=== PATIENT | female | born 1995 | race African-American/Black ===

== ENCOUNTER → 2021-11-08 14:28 | Outpatient (CLI) | payer OTHER, SELFPAY ==
[2021-11-09 18:33] LABS: Candida species Negative (Negative); Gardnerella vaginalis Negative (Negative); Trichomoas vaginalis Negative (Negative)
== END ==
PROVIDERS: PCP Student in an Organized Health Care Education/Training Program; Referring Provider Obstetrics & Gynecology; Visit Provider Obstetrics & Gynecology
DX: Z34.81 Encounter for supervision of other normal pregnancy, first trimester (principal); Z3A.10 10 weeks gestation of pregnancy
CPT/HCPCS: 87480; 87510; 87660

== ENCOUNTER → 2021-12-18 14:17 | Outpatient (CLI) | payer OTHER, SELFPAY ==
[2021-12-18 14:52] LABS: Add Manual Diff / Slide Review NO; Basophils Absolute Auto 0 /uL (0-100); Basophils Percent Auto 0.3 % (0-2); Eosinophils Absolute Auto 100 /uL (0-450); Eosinophils Percent Auto 1.2 % (2-4); Hematocrit 37.4 % (36-46); Hemoglobin 12.5 g/dL (12.0-16.0); Lymphocytes Absolute Auto 2100 /uL (1100-4500); Lymphocytes Percent Auto 25.5 % (25-40); Mean Corpuscular HGB Conc 33.5 % (30-36); Mean Corpuscular Hemoglobin 26.4 PG (26-34); Monocytes Absolute Auto 500 /uL (0-900); Monocytes Percent Auto 6.5 % (3-14); Neutrophils Absolute Auto 5500 /uL (1500-7000); Neutrophils Percent Auto 66.5 % (50-75); Platelet Count 220 X10^3/uL (150-400); Red Blood Cell Count 4.73 X10^6/uL (4.0-5.2); Red Cell Distribution Width 16.1 % (11.6-14.8); White Blood Cell Count 8.2 X10^3/uL (4.5-11.0)
[2021-12-18 15:05] LABS: Appearance Urine UA SL CLOUDY; Bilirubin Urine UA NEGATIVE (NEGATIVE); Color Urine UA YELLOW; Glucose Urine UA NEGATIVE (Negative); Ketones Urine UA NEGATIVE (NEGATIVE); Leukocyte Esterase Urine UA 1+ (NEGATIVE); Nitrite Urine UA NEGATIVE (Negative); Occult Blood Urine UA NEGATIVE (Negative); Protein Urine UA NEGATIVE (Negative); Urobilinogen Urine UA 0.2 E.U./dL (0.2)
[2021-12-18 15:07] LABS: pH Urine UA 6.5 (4.5-8.0)
[2021-12-18 15:40] LABS: Amorphous Sediment Urine 1+; Bacteria Urine Occasional (0-1); Mucus Urine 1+ (Negative); RBC Urine None Seen (0-5/HPF); Squamous Epithelial Cell Urine 1-5 /HPF (0-5/HPF); WBC Urine 1-5/HPF (0-5/HPF)
[2021-12-18 15:58] LABS: Hepatitis B Surface Antigen NEGATIVE s/c (NEGATIVE)
[2021-12-18 16:24] LABS: HIV 1 & 2 Ab/Ag 4th Gen Combo NEGATIVE (NEGATIVE); Hep C Virus Ab w/Reflex Quant NEGATIVE s/c (NEGATIVE)
[2021-12-19 08:17] LABS: RPR Screen Non Reactive (Non Reactive)
[2021-12-19 08:47] LABS: Varicella IgG Antibody 1384 index (Immune >165)
== END ==
PROVIDERS: PCP Nurse Practitioner Family; Referring Provider Obstetrics & Gynecology; Visit Provider Obstetrics & Gynecology
DX: Z34.81 Encounter for supervision of other normal pregnancy, first trimester (principal)
CPT/HCPCS: 36415; 80055; 81003; 81015; 86787; 86803; 86850; 86900; 86901; 87086; 87389

== ENCOUNTER → 2022-01-01 16:17 | Outpatient (CLI) | payer OTHER, SELFPAY ==
[2022-01-01 20:01] LABS: Urine N gonorrhoeae NOT DETECTED
[2022-01-01 20:03] LABS: Urine Chlamydia NOT DETECTED
[2022-01-03 06:08] LABS: Candida species Negative (Negative); Gardnerella vaginalis Negative (Negative); Trichomoas vaginalis Negative (Negative)
[2022-01-05 21:08] LABS: AFP, Serum 50.3 ng/mL (.); Calc Gestational Age Ultrasound (.); Estriol, Free 1.09 ng/mL (.); Inhibin A, Dimeric 124.49 pg/mL (.); Inhibin A, MoM 0.87 (.); Maternal Ethnicity Black (.); Maternal Weight 180 lbs (.); Number of Fetuses No (.); OSBR Risk 1 IN 10000 (.); Results Report (.); Test Results *Screen Negative* (.); hCG, MoM 1.89 (.); hCG, Serum 48846 mIU/mL (.)
== END ==
PROVIDERS: PCP Nurse Practitioner Family; Referring Provider Obstetrics & Gynecology; Visit Provider Obstetrics & Gynecology
DX: Z34.82 Encounter for supervision of other normal pregnancy, second trimester (principal); Z3A.18 18 weeks gestation of pregnancy; N89.8 Other specified noninflammatory disorders of vagina
CPT/HCPCS: 36415; 82105; 82677; 84702; 86336; 87480; 87491; 87510; 87591; 87660

== ENCOUNTER → 2022-01-16 14:03 | Outpatient (CLI) | payer OTHER, SELFPAY ==
--- NOTE | 2022-01-16 14:04 | DI.US.S_ITS ---
PROCEDURE: US OB >= 14 WEEKS FETUS INDICATIONS: ANATOMY SCAN OUTSIDE/PRIOR DATING DATA: Last menstrual period (LMP): 08/28/2021 LMP-based estimated date of delivery (AIDE): 06/04/2022 First dating scan (date and location): 11/08/2021 Estimated date of delivery (AIDE) from first dating scan: 06/07/2022. TECHNIQUE: Real-time scanning was performed of the fetus, with image documentation and biometric measurements. Endovaginal scanning: Not indicated COMPARISON: [facility], , OB >= 14 WEEKS FETUS, 01/01/2022, 15:58. FINDINGS: General: A single living intrauterine gestation is present. Presentation: Variable Placenta: Placental position is posterior, without previa. Amniotic fluid index: 10.4 cm, normal range is 5-24 cm. Single deepest vertical pocket is 3.1 cm. heart rate: 145 beats per minute. Maternal cervical canal: 4.3 cm long. Normal lower limit is 2.5 cm. biometrics: Biparietal diameter: 4.3 cm, 19 weeks, 0 day. Head circumference: 16.4 cm, 19 weeks, 1 day. Abdominal circumference: 15 cm, 20 weeks, 1 day. Femur length: 3.3 cm, 20 weeks, 2 days. Clinically estimated gestational age: 19 weeks, 5 days Composite gestational age from present scan: 19 weeks, 5 days Estimated weight and percentile: 333 g, 69%. Anatomic survey: Neuro: Ventricles are non-dilated at less than 10 mm. Cisterna magna is normal at 3-11 mm. Cerebellum is normal in size and morphology. Nuchal skin fold: Normal at less than 6 mm between 14-21 weeks gestational age. Face: Nose and lips, facial profile are normal. Spine: No evidence for spina bifida. Heart: 4-chambered heart is present, with normal ventricular outflow tracts. Diaphragm: Diaphragm is intact. Stomach: Left-sided stomach is present. Kidneys: No hydronephrosis. Normal is less than 5 mm in 2nd trimester, less than 7 mm in 3rd trimester. Cord: 3-vessel cord has orthotopic insertion. Bladder: Normal in size. Extremities: All 4 extremities identified. IMPRESSION: 1. Single live intrauterine with fetus in variable presentation. heart rate is 145 beats per minute. Normal amount of amniotic fluid. Normal growth. 2. Normal anatomic survey. We strive to produce accurate, complete, and clear reports of imaging services. To assist us in improving patient care, this report was composed using standard report templates and voice recognition software. Therefore, it may contain abnormal punctuation, insertions and/or omissions. Occasional wrong-word or sound-alike substitutions may occur. Though we review the report and make efforts to correct it, we do recommend that the report be read carefully in proper context to recognize any text inaccuracies. Dictated by: Brad Pineda M.D. on 01/16/2022 at 15:59 Approved by: Brad Pineda M.D. on 01/16/2022 at 16:02
== END ==
PROVIDERS: PCP Nurse Practitioner Family; Referring Provider Obstetrics & Gynecology; Visit Provider Obstetrics & Gynecology
DX: Z34.82 Encounter for supervision of other normal pregnancy, second trimester (principal); Z3A.19 19 weeks gestation of pregnancy
CPT/HCPCS: 76811

== ENCOUNTER → 2022-02-13 14:36 | Outpatient (ROUT) | payer OTHER, SELFPAY ==
[2022-02-14 05:18] LABS: Candida species Negative (Negative); Gardnerella vaginalis Negative (Negative); Trichomoas vaginalis Negative (Negative)
== END ==
PROVIDERS: PCP Nurse Practitioner Family; Visit Provider Obstetrics & Gynecology
DX: N89.8 Other specified noninflammatory disorders of vagina (principal); Z34.82 Encounter for supervision of other normal pregnancy, second trimester; Z3A.24 24 weeks gestation of pregnancy
CPT/HCPCS: 87480; 87510; 87660

== ENCOUNTER → 2022-03-05 10:50 | Outpatient (CLI) | payer OTHER, SELFPAY ==
[2022-03-05 13:18] LABS: Hematocrit 34.5 % (36-46); Hemoglobin 11.5 g/dL (12.0-16.0)
[2022-03-05 13:32] LABS: GTT (PREG) 1 Hour PP 50gm Dose 91 mg/dL (76-139)
== END ==
PROVIDERS: PCP Nurse Practitioner Family; Referring Provider Obstetrics & Gynecology; Visit Provider Obstetrics & Gynecology
DX: Z34.82 Encounter for supervision of other normal pregnancy, second trimester (principal); Z3A.26 26 weeks gestation of pregnancy
CPT/HCPCS: 36415; 82950; 85014; 85018

== ENCOUNTER → 2022-05-09 16:04 | Outpatient (CLI) | payer OTHER, SELFPAY ==
[2022-05-10 13:53] LABS: Strep Grp B PCR NEG for Grp B Strep
== END ==
PROVIDERS: PCP Nurse Practitioner Family; Visit Provider Obstetrics & Gynecology
DX: Z34.83 Encounter for supervision of other normal pregnancy, third trimester (principal); Z3A.36 36 weeks gestation of pregnancy
CPT/HCPCS: 87653

== ENCOUNTER 2022-05-20 16:41 | Outpatient (CLI) | payer OTHER, SELFPAY | END 2022-05-20 17:40 | disposition home or self-care (01) | LOC: OB 05-22 09:05 | PROVIDERS: PCP Nurse Practitioner Family; Referring Provider Obstetrics & Gynecology; Visit Provider Obstetrics & Gynecology | DX: O36.8130 Decreased fetal movements, third trimester, not applicable or unspecified (principal); Z3A.37 37 weeks gestation of pregnancy | CPT/HCPCS: 59025; G0378; G0379 ==

== ENCOUNTER 2022-05-21 11:13 | Outpatient (CLI) | payer OTHER, SELFPAY | END 2022-05-21 12:03 | disposition home or self-care (01) | LOC: OB 05-22 09:07 | PROVIDERS: PCP Nurse Practitioner Family; Referring Provider Obstetrics & Gynecology; Visit Provider Obstetrics & Gynecology | DX: O47.1 False labor at or after 37 completed weeks of gestation (principal); Z3A.38 38 weeks gestation of pregnancy | CPT/HCPCS: 59025; G0378; G0379 ==

== ENCOUNTER 2022-05-30 06:06 | Inpatient (IN) | payer OTHER, SELFPAY ==
[2022-05-30 06:42] LABS: COVID19 -Nasal RAPID Negative (Negative)
[2022-05-30] MEDS: LACTATED RINGERS 1,000 ML 100 ML IV ×3 (07:10→09:16)
[2022-05-30] MEDS: CITRIC ACID/SODIUM CITRATE 15 ML SOLUTION 30 ML PO (07:24)
[2022-05-30 07:32] LABS: Add Manual Diff / Slide Review NO; Basophils Absolute Auto 0 /uL (0-100); Basophils Percent Auto 0.3 % (0-2); Eosinophils Absolute Auto 100 /uL (0-450); Eosinophils Percent Auto 1.2 % (2-4); Hematocrit 34.8 % (36-46); Hemoglobin 11.8 g/dL (12.0-16.0); Lymphocytes Absolute Auto 2200 /uL (1100-4500); Lymphocytes Percent Auto 22.6 % (25-40); Mean Corpuscular HGB Conc 33.9 % (30-36); Mean Corpuscular Volume 79.7 fL (80-100); Monocytes Absolute Auto 600 /uL (0-900); Monocytes Percent Auto 6.3 % (3-14); Neutrophils Absolute Auto 6800 /uL (1500-7000); Neutrophils Percent Auto 69.6 % (50-75); Platelet Count 193 X10^3/uL (150-400); Red Blood Cell Count 4.36 X10^6/uL (4.0-5.2); Red Cell Distribution Width 15.7 % (11.6-14.8); White Blood Cell Count 9.7 X10^3/uL (4.5-11.0)
--- NOTE | 2022-05-30 08:14 | PM.PREOP ---
Pre-operative Note COVID-19 COVID-19 status: Negative Result date/Date tested (Pos, Neg/Pending): 05/30/22 Criteria for continued procedure: Non-surgical alternatives not available or appropriate per current SOC Interval Note History & Physical reviewed/Exam performed by Physician: Yes Changes to H&P: No H&P completed within 30 days and has changed as indicated here:: 05/30/22
--- NOTE | 2022-05-30 08:23 | P.HPOB_ITS ---
OB HPI Date/Time Date of admission: 05/30/22 Date Patient Seen: 05/30/22 Time Patient Seen: 08:24 History of Present Condition Chief complaint: INPT AIDE Calculator Estimated Delivery Date Method Current WG Current Estimate 06/04/22 LMP (Certain) 39w 2d Other Estimates 06/07/22 Ultrasound #1 38w 6d Estimated Gestational Age (weeks): 39+2 : 5 Para: 2 care: good care Dating criteria OB: LMP confirmed by 1st trimester US Ultrasounds: normal 1st trimester US and normal mid trimester US Obstetrical complications: none Medical complications OB: none Indications Operative indications ( section): previous uterine surgery Preadmission Labs Last OB Lab Results: Blood Type B Positive 05/30/22 07:10 Antibody Screen Negative 05/30/22 07:10 Hematocrit 34.8 % (36-46) L 05/30/22 07:10 Hemoglobin 11.8 g/dL (12.0-16.0) L 05/30/22 07:10 Hepatitis B Surface Antigen Negative s/c (NEGATIVE) 12/18/21 14 :22 Hepatitis C Antibody Negative s/c (NEGATIVE) 12/18/21 14:22 Rubella Antibody 158.0 IU/mL (>15) 12/18/21 14:22 Varicella-Zoster IgG Antibody 1384 index (Immune >165) 12/18/21 14:22 Glucose 1 Hour 91 mg/dL (76-139) 03/05/22 12:48 Group B Streptococcus (PCR) Neg for grp b strep 05/09/22 16:04 -: Chlamydia screen: negative, Gonorrhea screen: negative and Urine: negative -: PAP smear: Normal Genetic Screens: Quad screen: Normal External Labs -: Urine: negative Prior (ies) Past Pregnancies Del. Date GA/Weeks Labor Lgth Wt Sex Route Outcome Anesthesia Place Delv Breastfeed Preg Comp Name 03/01/09 6 elective elective 12/01/11 12 elective elective 07/12/18 42 36 7 lb 8 oz Female live - full t erm epidural MD Radha Did not produce milk-IGT failure to progress Olivier 03/13/20 37 0 6 lb 4 oz Female live - full t erm [facility] 1 month - IGT: formula only. none Skylar Delivery Date: 03/01/09 Last Updated by: Sully Garcia R.N. Procedure: no issues. Delivery Date: 12/01/11 Last Updated by: Sully Garcia R.N. Medication: no complications. Delivery Date: 07/12/18 Last Updated by: Sully Garcia R.N. Had PUPPS in . Narrow pelvis. Dilated to 4cm, then to C/S. jaundice with NICU admission for treatment. Delivery Date: 03/13/20 Last Updated by: Sully Garcia R.N. Anemia. Dehydrated end of , needed IV fluid infusion. Cord prolapse (spontaneous) but not in labor? Evaluation Evaluation Baseline heart rate: 135 Variability: Moderate (11-25) monitor accelerations: Present Monitor Decelerations: Absent Status: Category l [facility] Medical History (Updated 05/27/22 @ 15:39 by Michelle Gipson MD) Atopic eczema (~1993) Chicken pox (~1997) Closed left forearm fracture (~2000) Eczema (~1994) History of recurrent ear infection (~1995) History of urinary incontinence (~2017) anxiety (~03/2020) Recurrent sinusitis (~1995) Tubular breast Surgical History (Updated 12/09/21 @ 21:17 by Charity Joe) Previous section [place] teeth extracted (~2009) Family History (Updated 12/09/21 @ 21:20 by Charity Joe) Mother No problems noted. 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 Given guidance.) frequency: 3-4 times per week duration: 45-60 minutes/day Meds Home Medications and Allergies Home Medications Medication Instructions Recorded Confirmed Type prenat.vits,jimmy,uzn-[id number]-jwvzk 1 tab PO DAILY 10/11/21 05/30/22 History ferrous sulfate 325 mg (65 mg 325 mg PO DAILY #30 tabs 12/05/21 05/30/22 Rx iron) tablet Double electric breast pump #1 ea 04/25/22 05/30/22 Rx escitalopram oxalate 10 mg tablet 10 mg PO DAILY 05/14/22 05/30/22 History Allergies Allergy/AdvReac Type Severity Reaction Status Date / Time morphine AdvReac Severe Hives, Verified 05/27/22 15:03 swelling, itching OB Exam Narrative Exam Narrative: HEENT: No thyromegaly, no anterior cervical or supraclavicular lymphadenopathy. Lungs:Clear to auscultation bilaterally, no wheezes. Cardiovascular: Regular rate and rhythm, no murmurs, rubs, or gallops. Abdomen: Well-healed Pfannenstiel scars. No hepatosplenomegaly. No masses palpable. Fundal height: 40 cm Estimated weight: 7-1/2 lb Extremities: Trace edema Objective Labs Result Diagrams: 05/30/22 07:10 Labs: Laboratory Results - last 24 hr 05/30/22 05/30/22 05/30/22 06:20 07:10 07:10 WBC 9.7 RBC 4.36 Hgb 11.8 L Hct 34.8 L MCV 79.7 L MCH 27.0 MCHC 33.9 RDW 15.7 H Plt Count 193 Neut % (Auto) 69.6 Lymph % (Auto) 22.6 L [place] % (Auto) 6.3 Eos % (Auto) 1.2 L Baso % (Auto) 0.3 Neut # (Auto) 6800 Lymph # (Auto) 2200 [place] # (Auto) 600 Eos # (Auto) 100 Baso # (Auto) 0 SARS-CoV-2 (PCR) Negative Blood Type B Positive Antibody Screen Negative Assessment and Plan Assessment and Plan Assessment and Plan narrative: Assessment: 26-year-old 5 para 2 at 39-,2/7 weeks gestation with 2 prior sections Plan: Repeat low-transverse section The risks, benefits, and alternatives to the procedure were explained to the patient. The risks including bleeding, infection, injury to the bowel, bladder, or ureters. She understands these risks and agrees to proceed. A full par Q was held and consent form was signed. Time Spent with Patient Total time spent with greater than 50% in coordination of care (as documented) at patient's floor/unit and/or counseling patient:: less than 15 minutes
[2022-05-30] MEDS: CEFAZOLIN 2 GM/20 ML SYRINGE IV (08:35)
--- NOTE | 2022-05-30 08:53 | SUR.OPER ---
Supine on Padded OR bed, head on pillow, safety belt at thigh, arms secured on padded arm boards at <90 degrees abduction. Bump under right buttock. Legs uncrossed gel pad to heels, tape over blanket to lower legs. Safety strap across thighs. Directed and approved by surgeon.
--- NOTE | 2022-05-30 08:53 | SUR.OPER ---
Bran inserted with ease. Clear yellow urine was visualized in tubing prior to balloon inflation. Secured to thigh prior to leaving OR
--- NOTE | 2022-05-30 09:04 | SUR.OPER ---
Viable baby girl born at 0859. Cord blood and placenta sent with PAULA RN and baby.
[2022-05-30 09:43] VITALS: BP 120/63; PULSE 65; RESP 16; TEMP 36.7; O2SAT 98
[2022-05-30 09:53] VITALS: BP 122/66; PULSE 64; RESP 16; O2SAT 98
--- NOTE | 2022-05-30 09:58 | P.OP_ITS ---
Operative Date/Time/Diagnoses Date of procedure: 05/30/22 Time of procedure: 09:58 Pre-op diagnosis: 39 weeks gestation Previous section Post-op diagnosis: same Procedure & Clinicians Procedure: Repeat low-transverse section Same procedure as scheduled: Yes Indications: 39 weeks gestation Previous section Surgeon: Michelle Santacruz Yes if Unassisted: No Boiler Plant Operator: Darlyn Echols Reason for Boiler Plant Operator: The circulation assistant was necessary for retraction upon entry into the abdomen and uterus. She assisted with delivery of the infant. She assisted with closure by retraction, clipping suture, and closure of the contralateral fascia. Anesthesia Type: Spinal Operative Notes Findings: Live female infant in the JEANETTE presentation Normal tubes and ovaries Normal uterus Closure Type: primary Specimen(s): cord blood and placenta Intraoperative meds administered: Ketorolac and Pitocin Applied: Catheter (To continuous drainage) Estimated Blood Loss (mL): 400 Blood products transfused: none Procedure in detail: The patient was taken to the operating room where she was placed in the seated position. Spinal anesthesia with was administered. The patient was then placed in the dorsal supine position with a leftward tilt. She was prepped and draped in the usual sterile fashion. A timeout was performed. After spinal analgesia was found to be adequate, the previous incision was excised in an elliptical fashion and the incision carried through to the underlying layer fascia. The fascia was nicked in the midline, and the incision extended bilaterally with the [place]ado scissors. The superior aspect of the fascial incision was grasped with a [place] clamps, elevated, and the underlying rectus muscles dissected off sharply and bluntly. Attention was then turned to the inferior aspect of this incision which in a similar fashion was grasped with a [place] clamps, elevated, and the underlying rectus muscles dissected off sharply and bluntly. The rectus muscles were in the midline. The peritoneum was identified, grasped between 2 hemostats, and entered sharply with the Metzenbaum scissors. This incision was extended superiorly and inferiorly with good visualization of the bladder. The bladder blade was inserted. The vesicouterine peritoneum was identified, grasped with the pickup, and entered sharply with the Metzenbaum scissors. This incision was extended bilaterally, and the bladder flap was created digitally. The bladder blade was reinserted. The lower uterine segment was incised in a transverse fashion with the scalpel. Upon entering the amniotic sac there was moderate amount of clear amniotic fluid. A nuchal cord x 1 was reduced. The 's head was delivered without difficulty. The nose and mouth were suctioned with bulb suction. The remainder of the body delivered without difficulty. The was wrapped in warm to blankets. The cord was double clamped and cut after 1 minute. The infant was handed off to waiting RN and RT. The placenta was expressed.. The uterus was cleared of all clots and debris. The uterine incision was repaired with #1 chromic in a running interlocking fashion, and a second layer the same suture was used for an imbricating layer. Hemostasis was achieved. The tubes and ovaries were examined and were found to be normal. The gutters were cleared of all clots and debris. The bladder flap was reapproximated using 2-0 Vicryl in a running fashion. The parietal peritoneum was closed using 2-0 Vicryl in a running fashion. The fascia was reapproximated using 0 Vicryl in a running fashion. The subcutaneous layer was copiously irrigated with warm normal saline. 5 simple interrupted sutures of 3- 0 Vicryl were placed to reapproximate the subcutaneous layer. The skin was closed with 4-0 Monocryl in a subcuticular fashion. Steri-Strips were placed. An Aquacell dressing was placed. The uterus was expressed of a small amount of old blood. Sponge, lap, and instrument counts were correct x-2. The patient tolerated the procedure well, and was taken to PACU in stable condition. Complications: none Baby 1: Gender: Female Presentation: vertex Position: Left Occiput Anterior Placental Delivery Description: Expressed Cord Vessel Description: 3 Vessels, Nuchal Cord and Loose (x 1) score (1 min): 8 score (5 min): 9 weight: 7 lb 2.8 oz Post-operative Condition: stable Disposition: PACU Aftercare: routine postop
[2022-05-30 10:00] VITALS: BP 127/67; PULSE 60; RESP 16; TEMP 36.8; O2SAT 98
[2022-05-30 10:15] VITALS: BP 132/67; PULSE 80; RESP 16; TEMP 37; O2SAT 98
[2022-05-30] MEDS: OXYTOCIN PREMIX 30 UNIT/500 ML PLAST..BAG 200 UNIT IV (10:48)
[2022-05-30] MEDS: ACETAMINOPHEN 325 MG TABLET 650 MG PO ×3 (11:46→23:39)
[2022-05-30] MEDS: OXYCODONE IR 5 MG TABLET PO ×2 (12:31→14:18)
[2022-05-30] MEDS: KETOROLAC 30 MG/ML VIAL IV ×2 (15:34→21:49)
[2022-05-30] MEDS: OXYCODONE IR 10 MG TABLET PO ×2 (18:05→21:49)
[2022-05-30] MEDS: hydrOXYzine pamoate 25 MG CAPSULE PO (23:40)
[2022-05-31] MEDS: OXYCODONE IR 10 MG TABLET PO ×3 (02:02→12:18)
[2022-05-31] MEDS: KETOROLAC 30 MG/ML VIAL IV (03:22)
[2022-05-31 06:10] LABS: Hematocrit 29.5 % (36-46)
[2022-05-31] MEDS: ACETAMINOPHEN 325 MG TABLET 650 MG PO ×2 (06:12→12:17)
[2022-05-31] MEDS: ESCITALOPRAM 10 MG TABLET PO (09:32)
[2022-05-31] MEDS: PRENATAL VIT,CALC/IRON/FOLIC 1 TABLET 1 TAB PO (09:33)
[2022-05-31] MEDS: DOCUSATE 100 MG CAPSULE 200 MG PO (09:33)
[2022-05-31] MEDS: IBUPROFEN 600 MG TABLET PO (09:33)
[2022-05-31 17:01] VITALS: BP 108/61; PULSE 80; RESP 16; TEMP 36.4
[2022-05-31] MEDS: OXYCODONE IR 5 MG TABLET PO (17:46)
--- NOTE | 2022-06-01 13:24 | PM.OBDS.1 ---
Discharge Providers Provider Date of admission: 05/30/22 06:06 Discharge Date: 05/31/22 Primary care physician: ANGELA Caro Consults: 05/30/22 09:47 Consult to Protection Agent Routine Comment: 05/30/22 10:13 Consult to Protection Agent Routine Comment: Discharge provider: Michelle Gipson MD Summary Hospital Course Date Patient Seen: 05/31/22 Time Patient Seen: 15:30 Diagnoses: Thirty-nine weeks gestation Previous section Repeat low-transverse section Hospital Course: Patient is a 26 year 5 para 3 who presented on May 30, 2022 for a scheduled repeat low-transverse section. She underwent this procedure without complication. Her postoperative course was unremarkable. On postop day # 1 her catheter was out she was voiding spontaneously. She was tolerating a diet. She was ambulating independently. Nursing was going well. Pain was well controlled. Bleeding was tapering. Peripartum Data Delivery Method: Section Laceration Description: None Episiotomy description: None Procedures: Repeat low-transverse section Spinal anesthesia complications: none [place] 1: Gender: Female Disposition of : home Status at Discharge Cognitive/behavioral status at discharge: oriented Functional status at discharge: independent ambulation Overall status at discharge: patient is progressing back to baseline Time Spent with Patient Time attestation: Total time spent providing and/or coordinating discharge services: Time spent: Less than 30 minutes Objective Labs Result Diagrams: 05/31/22 05:58 Exam Vital Signs (past 8 hours): Oxygen Delivery Method Room Air Narrative Exam Narrative: Generally: Patient is sitting up in bed, holding infant, nursing, no acute distress. Lungs: Clear to auscultation bilaterally Cardiovascular: Regular rate and rhythm Fundus: Firm at U -1 Incision: Clean dry and intact with Aquacel dressing Extremities: Trace edema, negative [place] Discharge Plan Discharge Plan Patient Disposition: Home Provider Discharge Comment: Call with fever, chills, redness or drainage around the incision, or bleeding vaginally more than a pad in an hour Ibuprofen 600 mg every 6 hours as needed Tylenol 650 mg every 6 hours as needed Discharge orders & Medications Prescriptions: New oxycodone 10 mg tablet 10 mg PO Q4H PRN (Reason: pain) Qty: 30 0RF hydroxyzine HCl 25 mg tablet 25 mg PO BID PRN (Reason: anxiety) Qty: 20 2RF Rx Instructions: 1/2 - 1 tab BID as needed for anxiety Continued prenat.vits,jimmy,[id number] Tablet 1 tab PO DAILY ferrous sulfate 325 mg (65 mg iron) tablet 325 mg PO DAILY Qty: 30 6RF escitalopram oxalate 10 mg tablet 10 mg PO DAILY No Action (DME) Double electric breast pump See Rx Instructions .Route .MEDSUPPLY Qty: 1 0RF Rx Instructions: Use electric breast pump and supplies as directed for 99 months. AIDE 06/04/22 Follow up/Referrals: Michelle Gipson MD [Physician] - 06/06/22 1:30 pm (1 week incision check. Please arrive at 1:15pm to check in for your 1:30pm appointment. 07/11/22 - 6 week follow-up appointment with Dr. Gipson. Please arrive at 2:45pm for a 3:00pm appointment. ) Ksenia Kellogg MS [Registered Nurse] - 06/06/22 2:00 pm ([place] follow up appointment. ) Diet/Activity/Treatments Diet: Regular Activity: No heavy lifting Skin/Wound/Dressing Care Report to your healthcare provider any signs of infection, such as:: chills, fever, increased pain, unusual drainage and unusual redness Dressing: Do not remove Visit Report/Discharge Packet Instructions: DI for , DI for Prescription Opioid Use Stand Alone Forms: Discharge: Care Discharge Data Primary Care Provider: Polly Santoro
== END 2022-05-31 18:15 | disposition home or self-care (01) | DRG 788 ==
PROVIDERS: Admitting Provider Obstetrics & Gynecology; PCP Nurse Practitioner Family; Referring Provider Obstetrics & Gynecology; Visit Provider Obstetrics & Gynecology
PROC: 10D00Z1 Extraction of Products of Conception, Low, Open Approach (ICD-10-PCS; CPT 59514; principal; 2022-05-30 08:15)
DX: O34.211 Maternal care for low transverse scar from previous cesarean delivery (principal); Z3A.39 39 weeks gestation of pregnancy; Z37.0 Single live birth; O69.81X0 Labor and delivery complicated by cord around neck, without compression, not applicable or unspecified; Z20.822 Contact with and (suspected) exposure to COVID-19
CPT/HCPCS: 36415; 59050; 59510; 59514; 85014; 85018; 85025; 86850; 86900; 86901; 87635; C9803; J0690; J1885; J2405; J2590

== ENCOUNTER → 2022-06-11 11:57 | Outpatient (CLI) | payer OTHER, SELFPAY ==
[2022-06-11 12:38] LABS: Add Manual Diff / Slide Review NO; Basophils Absolute Auto 100 /uL (0-100); Basophils Percent Auto 0.9 % (0-2); Eosinophils Absolute Auto 500 /uL (0-450); Eosinophils Percent Auto 7.6 % (2-4); Hematocrit 37.3 % (36-46); Hemoglobin 12.7 g/dL (12.0-16.0); Lymphocytes Absolute Auto 2100 /uL (1100-4500); Lymphocytes Percent Auto 31.9 % (25-40); Mean Corpuscular HGB Conc 34.2 % (30-36); Mean Corpuscular Hemoglobin 27.1 PG (26-34); Mean Corpuscular Volume 79.3 fL (80-100); Monocytes Absolute Auto 300 /uL (0-900); Monocytes Percent Auto 4.7 % (3-14); Neutrophils Absolute Auto 3500 /uL (1500-7000); Neutrophils Percent Auto 54.9 % (50-75); Platelet Count 310 X10^3/uL (150-400); Red Cell Distribution Width 15.6 % (11.6-14.8); White Blood Cell Count 6.4 X10^3/uL (4.5-11.0)
[2022-06-11 13:19] LABS: Hemoglobin A1C% w Est Avg Glu 4.1 % (4.0-6.0)
[2022-06-11 14:06] LABS: TSH w/ Reflex to FT4 0.84 uIU/mL (0.47-4.68)
[2022-06-12 05:29] LABS: Thyroid Peroxidase Antibodies 12 IU/mL (0-34)
[2022-06-13 08:08] LABS: Prolactin 350.3 ng/mL (3.0-18.6)
[2022-06-15 13:08] LABS: Percent Free Testosterone 1.14 % (0.50-2.80); Testosterone Free 0.16 ng/dL (0.10-0.85); Testosterone Total 13.9 ng/dL (10.0-55.0)
== END ==
PROVIDERS: PCP Nurse Practitioner Family; Referring Provider Family Medicine; Visit Provider Family Medicine
DX: O92.70 Unspecified disorders of lactation (principal)
CPT/HCPCS: 36415; 83036; 84146; 84402; 84403; 84443; 85025; 86376

== ENCOUNTER → 2022-07-11 11:56 | Outpatient (CLI) | payer OTHER, SELFPAY ==
[2022-07-12 05:42] LABS: Candida species Negative (Negative); Gardnerella vaginalis Negative (Negative); Trichomoas vaginalis Negative (Negative)
== END ==
PROVIDERS: PCP Nurse Practitioner Family; Visit Provider Physician Assistant Medical
DX: N89.8 Other specified noninflammatory disorders of vagina (principal)
CPT/HCPCS: 87480; 87510; 87660

== ENCOUNTER → 2022-09-23 10:36 | Outpatient (CLI) | payer OTHER, SELFPAY ==
--- NOTE | 2022-09-23 10:37 | DI.US.S_ITS ---
PROCEDURE: US PELVIC COMPLETE INDICATIONS: PAIN TECHNIQUE: Real-time scanning was performed of the pelvic organs, with image documentation. Additional endovaginal scanning was necessary due to incomplete visualization of the adnexal and endometrial structures by transabdominal scanning. COMPARISON: None. FINDINGS: Uterus: Uterus is anteverted and normal in size at 8.6 x 4.1 x 6.9 cm. The myometrium is homogeneous. No discrete uterine fibroids. The endometrium measures 6.7 mm combined thickness. No gross endometrial mass or fluid. Ovaries: The right ovary measures 2.1 x 3.5 x 1.5 cm, with a calculated ovarian volume of 5.6 cc. The left ovary measures 3 x 3.6 x 2.2 cm, with a calculated ovarian volume of 12.1 cc. The ovaries have a normal sonographic appearance. Less than 12 follicles can be seen in each ovary. No adnexal masses are seen. Other: No pathologic free abdominal or pelvic fluid. IMPRESSION: Unremarkable ultrasound examination of uterus and bilateral ovaries. We strive to produce accurate, complete, and clear reports of imaging services. To assist us in improving patient care, this report was composed using standard report templates and voice recognition software. Therefore, it may contain abnormal punctuation, insertions and/or omissions. Occasional wrong-word or sound-alike substitutions may occur. Though we review the report and make efforts to correct it, we do recommend that the report be read carefully in proper context to recognize any text inaccuracies. Dictated by: Brad Pineda M.D. on 09/23/2022 at 16:18 Approved by: Brad Pineda M.D. on 09/23/2022 at 16:20
== END ==
PROVIDERS: PCP Nurse Practitioner Family; Referring Provider Specialist; Visit Provider Specialist
DX: R10.2 Pelvic and perineal pain (principal)
CPT/HCPCS: 76830; 76856; 93975

== ENCOUNTER → 2023-02-26 14:19 | Outpatient (CLI) | payer OTHER, SELFPAY ==
--- NOTE | 2023-02-26 14:20 | DI.US.S_ITS ---
PROCEDURE: US PELVIC COMPLETE INDICATIONS: Left lower quadrant pain TECHNIQUE: Real-time scanning was performed of the pelvic organs, with image documentation. Additional endovaginal scanning was necessary due to incomplete visualization of the adnexal and endometrial structures by transabdominal scanning. COMPARISON: [facility], US, US PELVIC COMPLETE, 09/23/2022, 10:46. FINDINGS: Uterus: Uterus is anteverted and normal in size at 9.1 x 4.4 x 6.0 cm. The myometrium is homogeneous. The endometrium measures 3.3 mm combined thickness. Intrauterine device in expected position. Mild amount of anechoic endocervical fluid. Ovaries: The right ovary measures 4.1 x 1.9 x 1.6 cm, with a calculated ovarian volume of 5.8 cc. The left ovary measures 2.7 x 3.0 x 2.0 cm, with a calculated ovarian volume of 7.2 cc. The ovaries have a normal sonographic appearance aside from regressing physiologic cyst associated with the right ovary measuring 1.2 cm. . Less than 12 follicles can be seen in each ovary. No adnexal masses are seen. Other: No pathologic free abdominal or pelvic fluid. IMPRESSION: 1. Intrauterine device in expected position. 2. 1.2 cm regressing right physiologic ovarian cyst. 3. No source for left lower quadrant pain identified. If pain persist with conservative management, consider cross-sectional imaging such as CT or MRI. We strive to produce accurate, complete, and clear reports of imaging services. To assist us in improving patient care, this report was composed using standard report templates and voice recognition software. Therefore, it may contain abnormal punctuation, insertions and/or omissions. Occasional wrong-word or sound-alike substitutions may occur. Though we review the report and make efforts to correct it, we do recommend that the report be read carefully in proper context to recognize any text inaccuracies. Dictated by: Renato SINHA Interpreted: Jose Juan Thorne MD on 02/26/2023 at 15:37 Transcribed by: KILO on 02/26/2023 at 15:39 Approved by: Jose Juan Thorne M.D. on 02/28/2023 at 9:15
== END ==
PROVIDERS: PCP Nurse Practitioner Family; Referring Provider Specialist; Visit Provider Specialist
DX: N83.291 Other ovarian cyst, right side (principal); R10.32 Left lower quadrant pain; Z97.5 Presence of (intrauterine) contraceptive device
CPT/HCPCS: 76830; 76856; 93975